=== PATIENT | female | born 1975 | race Two or more races ===

== ENCOUNTER 2018-07-30 13:59 | Emergency (ER) | payer MEDICAID ==
[~2018-07-30] VITALS: Ht 165.1 cm; Wt 86.2 kg
[2018-07-30 14:29] VITALS: BP 127/64
[2018-07-30] MEDS ORDERED: METOCLOPRAMIDE HCL 5MG/ml INJ 2ml VIAL IV ONE (14:30)
[2018-07-30] MEDS ORDERED: NALBUPHINE HCL 10 MG/1ml INJECTION IV ONE ×2 (14:30→14:45)
[2018-07-30 15:07] LABS: Basophils # (auto) 0.1 uL; Basophils % (auto) 0.8 % (0.0-2.0); Eosinophils # (auto) 0.1 uL; Hematocrit 40.1 % (36.0-46.0); Hemoglobin 13.1 g/dL (12.2-16.2); Mean Corpuscular Hgb Conc. 32.8 g/dL (32.0-36.0); Monocytes # (auto) 0.8 uL; Neutrophils # (auto) 5.2 uL; White Blood Cell 8.9 10^3/uL (4.4-10.8)
[2018-07-30 15:08] LABS: Eosinophils % (auto) 1.1 % (0.0-7.0); Lymphocytes # (auto) 2.6 uL; Lymphocytes % (auto) 29.7 % (10.0-50.0); Mean Corpuscular Hemoglobin 26.7 pg (28.0-32.0); Mean Corpuscular Volume 81.5 fL (80.0-100.0); Monocytes % (auto) 9.3 % (0.0-12.0); Neutrophils % (auto) 59.1 % (37.0-80.0); Nucleated Red Blood Cells % 0.1 %; Platelet Count (auto) 334 10^3/uL (140-450); Red Blood Cells 4.92 10^6/uL (4.0-5.20)
[2018-07-30] MEDS ORDERED: SODIUM CHLORIDE 0.9% 1,000 ML IV ONE (15:15)
[2018-07-30 15:27] LABS: Alanine Aminotransferase 45 U/L (13-56); Albumin 3.7 g/dL (3.4-5.0); Anion Gap 6 (5-15); Aspartate Aminotransferase 37 U/L (15-37); Blood Urea Nitrogen 10 mg/dL (7-18); Calcium 8.9 mg/dL (8.5-10.1); Carbon Dioxide 24 mmol/L (21-32); Chloride 105 mmol/L (98-107); Glucose 154 mg/dL (74-106); Potassium 3.6 mmol/L (3.5-5.1); Sodium 135 mmol/L (136-145)
[2018-07-30 15:32] LABS: Alkaline Phosphatase 60 U/L (45-117); BUN/Creatinine Ratio 14.5; Bilirubin, Total 0.4 mg/dL (0.2-1.0); GFR African American 119 mL/min; GFR Non-African American 99 mL/min; Total Protein 7.5 g/dL (6.4-8.2)
== END 2018-07-30 15:14 | disposition left against medical advice (07) ==
LOC: ER 13:59 → EDBD 13:59 → ER 15:14
DX: R51 Headache (principal); R11.2 Nausea with vomiting, unspecified; Z53.21 Procedure and treatment not carried out due to patient leaving prior to being seen by health care provider
CPT/HCPCS: 36415; 70450; 80053; 83735; 84484; 85025; 96374; J2765

== ENCOUNTER 2025-02-27 16:45 | Emergency (ER) | payer MEDICAID ==
[~2025-02-27] VITALS: Ht 167.6 cm; Wt 93.1 kg
--- NOTE | 2025-02-27 17:15 | ED.PDOC ---
General HPI Comments This is a 50-year-old female who comes in with chief complaint of right-sided flank pain. The patient states that the pain started approximately 1-1/2 hours ago. The patient was seen yesterday and diagnosed with a UTI at the [place] urgent [facility]. The patient states that she took the medication for the UTI and then started with significant amount of flank pain. At this time she states that the pain is a 10/10. The right flank pain radiates down to the right lower quadrant. It is associated with some nausea and vomiting and she was given Zofran 4 mg IV push by the paramedics EN route. EN route, the patient's Accu- Chek was also 122. She does have a history of kidney stones and is now noting hematuria. She is currently on Pyridium. Chief Complaint: Abdominal Pain Time Seen by MD: 16:49 Primary Care Provider: WILDA Durbin notes: Nurses Notes, Housekeeping Associate Notes, Medications, Allergies (Allergies listed above) Allergies: Coded Allergies: Metoclopramide (Verified Allergy, Unknown, 02/27/25) Sulfa Antibiotics (Verified Allergy, Unknown, 04/16/15) Sumatriptan (Verified Allergy, Unknown, 01/20/15) Information Source: Patient, Emergency Med Personnel Mode of Arrival: EMS Severity: Moderate Inability to void: None Timing: Hours Duration: Since onset Prehospital treatment: Accucheck (132), IVF, Other (Zofran 4 mg IV push) Onset: Spontaneous Symptoms: Hematuria History of: UTI, Kidney stone Location: (R) Flank Modifying factors: None associated signs and symptoms: Abdominal Pain, Nausea, Vomiting, Flank Pain (Right-sided flank pain), Hematuria Past Medical History PAST MEDICAL HISTORY: Kidney Stones Past Medical History (Other): IBS Surgical History: BTL Surgical History (Other): Ovarian removal but she is unsure which side AUGER OPERATOR History: No Pertinent AUGER OPERATOR History Family History Family History: Family hx of Cancer Social History Smoker: Quit Less Than 1 Year Alcohol: Occasionally Drugs: Denies Drug Use Lives In: Home Constitutional: denies: chills, diaphoresis, fatigue, fever, malaise, sweats, weakness, others EENTM: denies: blurred vision, double vision, ear bleeding, ear discharge, ear drainage, ear pain, ear ringing, eye pain, eye redness, hearing loss, mouth pain, mouth swelling, nasal discharge, nose bleeding, nose congestion, nose pain, photophobia, tearing, throat pain, throat swelling, voice changes, others Respiratory: denies: cough, hemoptysis, orthopnea, SOB at rest, shortness of breath, SOB with excertion, stridor, wheezing, others Cardiovascular: denies: chest pain, dizzy spells, diaphoresis, Dyspnea on exertion, edema, irregular heart beat, left arm pain, lightheadedness, palpitations, PND, syncope, others Gastrointestinal: reports: abdominal pain, nausea, vomiting; denies: abdomen distended, blood streaked bowels, constipated, diarrhea, dysphagia, difficulty s wallowing, hematemesis, melena, poor appetite, poor fluid intake, rectal bleeding, rectal pain, others Genitourinary: reports: flank pain, hematuria; denies: abnormal vagina bleeding, burning, dyspareunia, dysuria, frequency, incontinence, pain, , vagina discharge, urgency, others Neurological: denies: dizziness, fainting, headache, left sided numbness, left sided weakness, numbness, paresthesia, pre-existing deficit, right sided numbness, right sided weakness, seizure, speech problems, tingling, tremors, weakness, others Musculoskeletal: denies: back pain, gout, joint pain, joint swelling, muscle pain, muscle stiffness, neck pain, others Integumetry: denies: bruises, change in color, change in hair/nails, dryness, laceration, lesions, lumps, rash, wounds, others Allergic/Immunocompromised: denies: Difficulty Healing, Frequent Infections, Hives, Itching, others Hematologic/Lymphatic: denies: anemia, blood clots, easy bleeding, easy bruising, swollen glands, others Endocrine: denies: excessive hunger, excessive sweating, excessive thirst, excessive urination, flushing, intolerance to cold, intolerance to heat, unexplained weight gain, unexplained weight loss, others Psychiatric: denies: anxiety, bipolar disorder, depression, hopeless, panic disorder, schizophrenia, sleepless, suicidal, others Physical Exam General Appearance: Moderate Distress HEENT: Normal ENT Inspection, Pharynx Normal, TMs Normal Neck: Full Range of Motion, Non-Tender, Normal, Normal Inspection Respiratory: Chest Non-Tender, Lungs Clear, No Accessory Muscle Use, No Respiratory Distress, Normal Breath Sounds Cardiovascular: No Edema, No JVD, No Murmur, No Gallop, Normal Peripheral Pulses, Regular Rate/Rhythm Breast Exam: Deferred Gastrointestinal: No Organomegaly, No Pulsatile Mass, Normal Bowel Sounds, RLQ, Soft, Tenderness Genitalia: Deferred Pelvic: Deferred Rectal: Deferred Extremities: No calf tenderness, Normal capillary refill, No pedal edema Musculoskeletal : Apperance: Normal Neurologic: Alert, solderer production line II-XII nml as Tested, No Motor Deficits, Normal Affect, Normal Mood, No Sensory Deficits Cerebellar Function: Normal Reflexes: Normal Skin: Dry, Normal Color, Warm Lymphatic: No Adenopathy Was a procedure done? Was a procedure done?: No Differential Diagnosis Kidney stone (Female): Cholelithiasis, Musculoskeletal pain, Renal failure, Strain, Urolithiasis X-Ray, Labs, Meds, VS Vital Signs Date Time Temp Pulse Resp B/P (MAP) Pulse Ox O2 Delivery O2 Flow Rate FiO2 02/27/25 18:46 97.3 74 16 117/69 (85) 99 97.3 02/27/25 18:45 74 16 117/69 02/27/25 17:16 84 22 147/72 02/27/25 17:15 84 22 147/72 (97) 99 02/27/25 16:50 98.4 70 17 170/77 97 98.4 Lab Test 02/27/25 17:20 02/27/25 16:56 Range/Units White Blood Count 9.6 4.4-10.8 10^3/uL Red Blood Count 5.01 4.0-5.20 10^6/uL Hemoglobin 12.6 12.2-16.2 g/dL Hematocrit 38.5 36.0-46.0 % Mean Corpuscular Volume 76.9 L 80.0-100.0 fL Mean Corpuscular Hemoglobin 25.2 L 28.0-32.0 pg Mean Corpuscular Hemoglobin Concent 32.7 32.0-36.0 g/dL Red Cell Distribution Width 16.1 H 11.8-14.3 % Platelet Count 359 140-450 10^3/uL Mean Platelet Volume 8.8 6.9-10.8 fL Neutrophils (%) (Auto) 46.8 37.0-80.0 % Lymphocytes (%) (Auto) 41.5 10.0-50.0 % Monocytes (%) (Auto) 9.3 0.0-12.0 % Eosinophils (%) (Auto) 0.9 0.0-7.0 % Basophils (%) (Auto) 1.5 0.0-2.0 % Neutrophils # (Auto) 4.5 1.6-8.6 10 ^3/uL Lymphocytes # (Auto) 4.0 0.4-5.4 10 ^3/uL Monocytes # (Auto) 0.9 0-1.3 10 ^3/uL Eosinophils # (Auto) 0.1 0-0.8 10 ^3/uL Basophils # (Auto) 0.1 0-0.2 10 ^3/uL Nucleated Red Blood Cells 0.0 % Sodium Level 140 136-145 mmol/L Potassium Level 3.4 L 3.5-5.1 mmol/L Chloride Level 107 98-107 mmol/L Carbon Dioxide Level 21 20-31 mmol/L Anion Gap 12 5-15 Blood Urea Nitrogen 10 9-23 mg/dL Creatinine 0.83 0.550-1.02 mg/dL Glomerular Filtration Rate Calc 86 >90 mL/min BUN/Creatinine Ratio 12.0 10.0-20.0 Serum Glucose 126 H 74-106 mg/dL Calcium Level 9.3 8.7-10.4 mg/dL Urine Color Dark-brown Yellow Urine Clarity Clear Clear Urine pH 6.0 5.0-9.0 Urine Specific Erin 1.013 1.001-1.035 Urine Protein Trace H Negative Urine Ketones Negative Negative Urine Blood Trace H Negative /uL Urine Nitrite 2+ H Negative Urine Bilirubin 1+ H Negative Urine Urobilinogen 6 Negative mg/dL Urine Leukocyte Esterase Negative Negative /uL Urine RBC 33 0 - 4 /hpf Urine WBC Clumps Present None Seen /hpf Urine Microscopic WBC < 1 0-5 /HPF Urine Squamous Epithelial Cells Few <5 /hpf Urine Bacteria None seen None Seen /hpf Urine Mucus Few None Seen Urine Glucose Normal Normal mg/dL Current Medications Medications (Trade) Dose Ordered Sig/Ketty Route Start Time Stop Time Status Last Admin Sodium Chloride 1,000 ml @ 1,000 mls/hr Q1H ONCE IVB 02/27/25 17:00 02/27/25 17:59 DC 02/27/25 17:17 Ketorolac Tromethamine (Toradol Injection) 30 mg ONCE ONCE IV 02/27/25 17:00 02/27/25 17:01 DC 02/27/25 17:17 Hydromorphone HCl (Dilaudid Injection) 0.5 mg ONCE ONCE IV 02/27/25 17:00 02/27/25 17:01 DC 02/27/25 17:16 Ondansetron HCl (Zofran) 4 mg ONCE ONCE IV 02/27/25 18:15 02/27/25 18:16 DC 02/27/25 18:14 IV Hep-Lock was established The patient was given a 1 L bolus of normal saline The patient was given Toradol 30 mg IV push The patient had more pain so was given Dilaudid 0.5 mg IV push The patient was also given Zofran 4 mg IV push The urine test is positive for a significant UTI There is a CAT scan of the abdomen and pelvis which shows: IMPRESSION: 1. Mild right pelviectasis and hydroureter minimal hospital asymmetric right kidney hypoattenuation. No visualized distal ureteral stone. 2. Subserosal exophytic uterine fundal prominent fibroid The patient's CBC and chemistry panel are within normal limits. The patient is being started on Rocephin IV piggyback The patient is a [facility] patient They will be transfer the patient to [place] [facility] in the authorization #[id number] Images Reviewed?: Images reviewed and evaluated by me Time of 1ST Reevaluation: 17:15 Reevaluation 1ST: Unchanged Patient Education/Counseling: Diagnosis, Treatment, Prognosis Family Education/Counseling: No Family Present SEPSIS Sepsis Screen Physician Orders Ct Ab Pel Wo Con-No Oral Or Iv (02/27/25 16:54) Heplock Iv (02/27/25 16:54) Ceftriaxone 1gm/50ml D5w (Rocephin) (02/27/25 18:45) Vital Signs Date Time Temp Pulse Resp B/P (MAP) Pulse Ox O2 Delivery O2 Flow Rate FiO2 02/27/25 18:46 97.3 74 16 117/69 (85) 99 97.3 02/27/25 18:45 74 16 117/69 02/27/25 17:16 84 22 147/72 02/27/25 17:15 84 22 147/72 (97) 99 02/27/25 16:50 98.4 70 17 170/77 97 98.4 Laboratory Tests Test 02/27/25 17:20 White Blood Count 9.6 10^3/uL (4.4-10.8) Medications Medications Dose Ordered Sig/Ketty Route Start Time Stop Time Status Last Admin Dose Admin Hydromorphone HCl 0.5 mg ONCE ONCE IV 02/27/25 17:00 02/27/25 17:01 DC 02/27/25 17:16 Ketorolac Tromethamine 30 mg ONCE ONCE IV 02/27/25 17:00 02/27/25 17:01 DC 02/27/25 17:17 Ondansetron HCl 4 mg ONCE ONCE IV 02/27/25 18:15 02/27/25 18:16 DC 02/27/25 18:14 Sodium Chloride 1,000 ml @ 1,000 mls/hr Q1H ONCE IVB 02/27/25 17:00 02/27/25 17:59 DC 02/27/25 17:17 Departure 1 Departure Time of Disposition: 18:34 Impression: Primary Impression: Acute pyelonephritis Additional Impressions: Nephrolithiasis Hematuria Qualified Codes: R31.9 - Hematuria, unspecified Disposition: 51 HOSPICE/MEDICAL FACILITY Condition: Fair Critical Care Note Critical Care Time?: No Stability Stability form required: Yes Stable for transfer: Intended for transfer (Health plan request transfer), To designated facility Heart Score Heart Score: Heart Score Response (Comments) Value History N/A 0 EKG N/A 0 Age N/A 0 Risk Factors N/A 0 Troponin N/A 0 Total 0 LIBRADO GOMEZ MD Feb 27, 2025 17:15
[2025-02-27] MEDS: HYDROmorphone HCL 2 MG/ML VL/or syr IV ONE (17:16)
[2025-02-27] MEDS: SODIUM CHLORIDE 0.9% 1,000 ML IVB ONE (17:17)
[2025-02-27] MEDS: KETOROLAC TROMETH 30 MG/ML 1ML VIAL IV ONE (17:17)
[2025-02-27 17:31] LABS: Hemoglobin 12.6 g/dL (12.2-16.2)
[2025-02-27 17:32] LABS: Hematocrit 38.5 % (36.0-46.0); Mean Corpuscular Hemoglobin 25.2 pg (28.0-32.0); Mean Corpuscular Volume 76.9 fL (80.0-100.0); Nucleated Red Blood Cells % 0.0 %
[2025-02-27 17:36] LABS: Sodium 140 mmol/L (136-145)
[2025-02-27 17:37] LABS: Anion Gap 12 (5-15); Calcium 9.3 mg/dL (8.7-10.4); Carbon Dioxide 21 mmol/L (20-31)
[2025-02-27 17:42] LABS: Urine Protein, UAD TRACE (Negative); Urine WBC Clumps PRESENT /hpf (None Seen)
[2025-02-27 17:42] LABS: BUN/Creatinine Ratio 12.0 (10.0-20.0); Blood Urea Nitrogen 10 mg/dL (9-23)
[2025-02-27 17:45] LABS: Chloride 107 mmol/L (98-107); Glucose 126 mg/dL (74-106); Potassium 3.4 mmol/L (3.5-5.1)
--- NOTE | 2025-02-27 18:00 | DVH ---
EXAM: CT CT AB PEL WO CON-NO ORAL OR IV INDICATION: right flank pain TECHNIQUE: Volumetric multidetector CT images of the abdomen and pelvis were obtained without contras t. All CT scans at this facility use dose modulation, iterative reconstruction, and/or weight based d osing when appropriate to reduce radiation dose to as low as reasonably achievable. COMPARISON: None FINDINGS: [LOWER CHEST]: The partially visualized lung bases are clear without a pleural effusion. The cardiac size is normal without pericardial effusion. [LIVER]: Normal hepatic size without suspicious focal lesion. [GALLBLADDER AND BILIARY TREE]: No cholelithiasis. [SPLEEN]: Unremarkable. [PANCREAS]: Unremarkable. [ADRENAL GLANDS]: Unremarkable [KIDNEYS]: Mild right pelviectasis and hydroureter minimal hospital asymmetric right kidney hypoatten uation. No visualized distal ureteral stone. phleboliths in the pelvis. [BLADDER]: Bladder is decompressed [REPRODUCTIVE ORGANS]: Subserosal exophytic uterine fundal prominent fibroid [BOWEL/MESENTERY]: Stomach is normal. No CT evidence of bowel obstruction. Normal appendix. [ASCITES]: [LYMPHADENOPATHY]: No pathologically enlarged lymph nodes by CT size criteria [VASCULATURE]: No aneurysmal dilatation. [ABDOMINAL WALL]: Unremarkable. [MUSCULOSKELETAL]: No acute fracture or aggressive focal osseous lesion. Multifocal degenerative benjamin ge of the visualized spine. Chronic bilateral L5 pars defects. IMPRESSION: 1. Mild right pelviectasis and hydroureter minimal hospital asymmetric right kidney hypoattenuation. No visualized distal ureteral stone. 2. Subserosal exophytic uterine fundal prominent fibroid
[2025-02-27] MEDS: ONDANSETRON HCL 4 MG/2 ML VIAL IV ONE ×2 (18:14→23:53)
[2025-02-27] MEDS: cefTRIAXone 1GM/50ML D5W 50 ML IV ONE (20:12)
[2025-02-27] MEDS: fentaNYL CITRATE 100 MCG/2 ML VL IV ONE (23:59)
[2025-02-28 01:14] VITALS: BP 157/76; PULSE 77; RESP 19; TEMP 97.9; O2SAT 99
== END 2025-02-28 02:16 | disposition home or self-care (01) ==
LOC: ER 16:45 → EDBD 16:45 → ER 02-28 02:16
DX: N10 Acute pyelonephritis (principal); N20.0 Calculus of kidney; R31.9 Hematuria, unspecified; Z87.442 Personal history of urinary calculi; Z87.440 Personal history of urinary (tract) infections; Z88.2 Allergy status to sulfonamides; Z88.8 Allergy status to other drugs, medicaments and biological substances; Z98.51 Tubal ligation status; Z87.891 Personal history of nicotine dependence
CPT/HCPCS: 36415; 74176; 80048; 81001; 85025; 96361; 96365; 96366; 96375; 96376; 99285; J0696; J1171; J1885; J2405; J3010; J7030